=== PATIENT | male | born 1990 | race African-American/Black ===

== ENCOUNTER 2021-08-05 04:06 | Emergency (ER) | payer SELFPAY ==
[~2021-08-05] VITALS: Ht 165.1 cm; Wt 68.0 kg
[2021-08-05] MEDS ORDERED: HYDROcodone/APAP 5/325MG 1 TAB TABLET PO ONE (04:45)
[2021-08-05 04:55] VITALS: BP 135/79
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
[2021-08-05] MEDS ORDERED: SULF1TAB24 PO (05:22)
[2021-08-05] MEDS ORDERED: NAPR-682 PO (05:22)
== END 2021-08-05 05:35 | disposition home or self-care (01) ==
LOC: ER 04:06
DX: S91.351A Open bite, right foot, initial encounter (principal); F17.200 Nicotine dependence, unspecified, uncomplicated; Y04.0XXA Assault by unarmed brawl or fight, initial encounter; Y93.89 Activity, other specified; Y92.89 Other specified places as the place of occurrence of the external cause; Y99.8 Other external cause status
CPT/HCPCS: 99283